=== PATIENT | male | born 1940 | race Caucasian/White ===

== ENCOUNTER → 2024-04-30 | Outpatient (CLI) | payer MEDICARE ==
[2024-04-30 10:32] LABS: BASO # 0.02 K/mm3 (0.02-0.10); EOS # 0.26 K/mm3 (0.04-0.40); EOS % 4.2 % (0.0-4.0); HEMATOCRIT 44.5 % (42.0-52.0); HEMOGLOBIN 14.8 g/dL (13.5-18.0); LYMPH# 1.02 K/mm3 (1.50-4.00); MEAN CELL VOLUME 89 fl (78-100); MEAN CORPUSCULAR HEMOGLOBIN 30 pg (27-31); MEAN CORPUSCULAR HGB CONC 33 g/dL (33-37); MEAN PLATELET VOLUME 9.3 fl (7.4-10.4); MONO # 0.54 K/mm3 (0.20-0.80); PLATELET COUNT 187 K/mm3 (130-400); RED CELL DISTRIBUTION WIDTH 13.1 % (11.5-14.5); WHITE BLOOD COUNT 6.3 K/mm3 (4.8-10.8)
[2024-04-30 10:37] LABS: ALBUMIN 4.4 g/dL (3.4-4.8)
[2024-04-30 10:38] LABS: CALCIUM 11.2 mg/dL (8.3-10.5)
[2024-04-30 10:40] LABS: TOTAL PROTEIN 7.1 g/dL (6.2-8.1)
[2024-04-30 10:41] LABS: TOTAL BILIRUBIN 0.9 mg/dL (0.2-1.2)
[2024-04-30 10:46] LABS: MAGNESIUM 1.77 mg/dL (1.60-2.60)
== END ==
LOC: LAB 10:14
PROVIDERS: Internal Medicine
DX: Z12.5 Encounter for screening for malignant neoplasm of prostate (principal); I10 Essential (primary) hypertension; E78.2 Mixed hyperlipidemia; K90.9 Intestinal malabsorption, unspecified

== ENCOUNTER → 2024-05-04 | Outpatient (CLI) | payer MEDICARE | LOC: LAB 14:30 | DX: E21.3 Hyperparathyroidism, unspecified (principal) ==